=== PATIENT | male | born 1985 | race Caucasian/White ===

== ENCOUNTER 2018-08-28 19:30 | Emergency (ER) | payer OTHER ==
[2018-08-28] MEDS: CYCLOBENZAPRINE 10 MG TAB PO (20:43)
[2018-08-28] MEDS: IBUPROFEN 800 MG TAB PO (20:43)
== END 2018-08-28 20:45 | disposition home or self-care (01) ==
LOC: M ED 19:30
DX: M62.838 Other muscle spasm (principal)
CPT/HCPCS: 99282